=== PATIENT | female | born 1950 | race Caucasian/White ===

== ENCOUNTER → 2023-08-31 | Outpatient (CLI) | payer MEDICARE, OTHER, SELFPAY | END | disposition home or self-care (01) | PROVIDERS: Referring Provider Physician Assistant; Visit Provider Physician Assistant | DX: N39.0 Urinary tract infection, site not specified (principal) | CPT/HCPCS: 87086 ==

== ENCOUNTER → 2023-12-19 | Outpatient (CLI) | payer MEDICARE, OTHER, SELFPAY ==
[2023-12-19 08:55] LABS: Red Blood Cells-Urine 0 SEEN /hpf (0-5)
[2023-12-19 10:08] LABS: Absolute Lymphocyte Count 1.87 X10^3/uL (0.83-4.51); Absolute Neutrophil Count 2.7 X10^3/uL (2.0-7.7); Basophil# 0.06 X10^3/uL; Basophil% 1.1 % (0-1); Eosinophil# 0.34 X10^3/uL; Eosinophils% 6.2 % (0-5); Hematocrit 38.3 % (37-47); Hemoglobin 12.6 g/dL (12.0-15.0); Lymphocyte # 1.87 X10^3/ul (0.83-4.51); Lymphocyte % 34.1 % (19-41); Mean Corp Hgb Conc 32.9 g/dL (32-36); Mean Corpuscular Hgb 29.2 pg (27.0-32.0); Mean Corpuscular Volume 88.9 fL (81-99); Mean Platelet Vol. 12.3 fl (6.2-12.0); Monocyte# 0.56 X10^3/uL; Monocyte% 10.2 % (0-10); NRBC Flagged by Analyzer 0 % (0-5); Neutrophil # 2.65 X10^3/uL (2.7-7.7); Neutrophil % 48.2 % (47-70); Platelet Count 177 K/mm3 (150-450); RBC Distribution Width CV 13.5 % (11.6-14.6); RBC Distribution Width SD 44.3 fl (35.1-43.9); Red Blood Count 4.31 M/mm3 (4.2-5.4); White Blood Count 5.5 K/mm3 (4.4-11.0)
[2023-12-19 10:18] LABS: Color, Urine Yellow (Yellow); Glucose, Dipstick Normal (Normal); Ketone-Dipstick Negative (Negative); Leukocyte Esterase-Dipstick 100 /ul (Negative); Nitrite-Dipstick Negative (Negative); Occult Blood-Urine Negative /ul (Negative); Protein-Dipstick Negative (Negative); Specific Gravity, Urine 1.015 (1.002-1.030); Urine Clarity Clear (Clear); Urine Urobilinogen Normal (Normal)
[2023-12-19 10:19] LABS: Urine Bilirubin Dipstick 1 mg/dL (Negative)
[2023-12-19 10:25] LABS: Hemoglobin A1c 5.6 % (3.8-5.6)
[2023-12-19 10:35] LABS: AST(SGOT) 49 U/L (15-37); Alanine Aminotransfer ALT/SGPT 50 U/L (13-56); Albumin, Serum 3.4 g/dL (3.2-5.0); Alkaline Phosphatase 76 U/L (45-117); Anion Gap 10 (5-15); BUN 28 mg/dL (7-18); BUN/Creat Ratio 35.4 RATIO (10-20); Calcium,Total 9.2 mg/dL (8.5-10.1); Chloride 108 mmol/L (98-107); Cholesterol 106 mg/dL (200); Creatinine, Serum 0.79 mg/dL (0.55-1.02); EST Glomerular Filtration Rate 76 mL/min (>60); Est Glom Filt Rate - Afr Amer 92 mL/min (>60); Globulin 3.4 g/dL (2.2-4.2); Glucose 99 mg/dL (74-106); High Density Lipoprotein 61 mg/dL; Protein, Total 6.8 g/dL (6.4-8.2); Sodium Level 142 mmol/L (136-145); T4 Free Direct 0.92 ng/dL (0.76-1.46); Triglycerides 98 mg/dL; Very Low Density Lipoprotein 20 mg/dL (5-40)
[2023-12-19 10:44] LABS: Microalbumin,Random Urine 6.8 mg/L (NO RANGE EST.); Microalbumin:Creatinine Ratio 5.4 mg/g CRE (<30 mg/g CRE)
[2023-12-19 11:12] LABS: Amorphous Sediment 1+; Bacteria 2+ /hpf (None Seen); Mucous, Urine 1+ /hpf (<or=2+); Squamous Epithelial Cells - UA 0-5 SEEN /hpf (5-10); White Blood Cells 0-5 SEEN /hpf (0-5)
[2023-12-20 17:12] LABS: Anti-Thyroglobulin AB < 1.0 IU/mL (0.0-0.9); Thyroglobulin, Serum Qt. 30.2 ng/mL (1.5-38.5); Thyroid Peroxidase AB < 9 IU/mL (0-34)
== END | disposition home or self-care (01) ==
PROVIDERS: PCP Family Medicine; Visit Provider Family Medicine
DX: E11.69 Type 2 diabetes mellitus with other specified complication (principal); E11.59 Type 2 diabetes mellitus with other circulatory complications; E04.1 Nontoxic single thyroid nodule
CPT/HCPCS: 36415; 80053; 80061; 81001; 82043; 82570; 83036; 83735; 84432; 84439; 84443; 85025; 86376; 86800

== ENCOUNTER → 2023-12-21 | Outpatient (CLI) | payer MEDICARE, OTHER, SELFPAY ==
[2023-12-21 13:12] LABS: Hepatitis B Surface Antibody Reactive; Hepatitis B Surface Antigen Non-Reactive (Nonreactive); Hepatitis C Antibody Non-Reactive (Nonreactive)
== END | disposition home or self-care (01) ==
PROVIDERS: PCP Family Medicine; Visit Provider Family Medicine
DX: R79.89 Other specified abnormal findings of blood chemistry (principal)
CPT/HCPCS: 36415; 86706; 86803; 87340

== ENCOUNTER → 2024-01-08 | Outpatient (CLI) | payer MEDICARE, OTHER, SELFPAY ==
--- NOTE | 2024-01-08 08:43 | RAD_ITS ---
STUDY: X-RAY - ESOPHAGUS (BARIUM SWALLOW) WITH FLUOROSCOPY REASON FOR EXAM: Female, 73 years old. Dysphagia for solids. TECHNIQUE: 49 fluoroscopic view(s) of the esophagus were obtained following swallowing of barium. FLUOROSCOPY TIME (if supplied): (38 seconds) minutes/seconds. 12.1 mGy. COMPARISON: None. FINDINGS: There is no demonstrated esophageal foreign body. There is no demonstrated stricture or mucosal abnormality. Normal gastroesophageal junction, without a demonstrated hiatal hernia. The patient ingested a 12 mm tablet of barium without any difficulty. There is atherosclerotic calcification of the aortic arch with tortuosity of the descending aorta. Normal visualized pulmonary parenchyma. There are diffuse degenerative changes of the visualized thoracic spine. RAD/Esophagus Dual Contrast IMPRESSION: Normal plain film x-ray examination (barium swallow) of the esophagus. Electronically Signed: Quang Espinoza MD at 10:12 EDT ,
--- NOTE | 2024-01-08 08:44 | US_ITS ---
STUDY: THYROID ULTRASOUND REASON FOR EXAM: Female, 73 years old. nodule TECHNIQUE: Ultrasound evaluation of the thyroid was performed with real-time and static strauss-scale imaging. COMPARISON: None. FINDINGS: RIGHT LOBE: The right lobe of the thyroid gland measures 4.6 x 1.6 x 1.9 cm. There is a homogeneous echotexture. Isoechoic hypervascular nodule measures 1.7 x 1.2 x 1.0 cm. Complex cyst superiorly measures 0.7 x 0.3 x 0.4 cm. LEFT LOBE: The left lobe of the thyroid gland measures 4.5 x 1.7 x 1.4 cm. There is a homogeneous echotexture. 2 cystic lesions measuring 0.4 x 0.4 x 0.3 cm. And 0.5 x 0.4 x 0.3 cm. ISTHMUS: The isthmus measures 3 mm . The regional lymph nodes are normal. US/Thyroid IMPRESSION: 1.7 cm nodule right lobe. This nodule is solid or almost completely solid, hyperechoic or isoechoic, [id number], smoothly marginated and contains no echogenic foci. This nodule is mildly suspicious. Recommend follow-up thyroid ultrasounds at 1, 3 and 5 years. 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 Electronically Signed: Rishabh Gibbons MD at 17:30 EDT ,
--- NOTE | 2024-01-08 08:44 | ECHOD_ITS ---
Reason For Study: Murmur Procedure This was a 2D Doppler, Color Flow transthoracic echocardiogram. Exam performed in department. Left Ventricle Normal LV size. Left ventricular systolic function is normal. The left ventricular ejection fraction is 65 %. No regional wall motion abnormalities noted. Right Ventricle Normal RV size. Normal systolic function. Atria Normal left atrium. Normal right atrium. Mitral Valve Normal mitral valve. Tricuspid Valve Normal tricuspid valve. Mild (1+) tricuspid valve insufficiency. Pulmonary artery systolic pressure is 30 mmHg. Aortic Valve Trisinus/trileaflet aortic valve. Mild (1+) aortic valve insufficiency. Pulmonic Valve Normal pulmonic valve. Great Vessels Normal aortic root. The pulmonary artery is normal size. Normal inferior vena cava. Pericardium/Pleural No pericardial effusion. MMode/2D Measurements & Calculations LVIDd: 4.9 cm IVSd: 0.85 cm Ao root diam: 3.8 cm LVIDs: 3.2 cm LVPWd: 0.75 cm RVDd: 3.4 cm FS: 35.5 % LAV(MOD-bp): 42.7 ml LVAd ap4: 22.4 cm2 SV(MOD-sp4): 37.0 ml LAV(MOD-bp) Indexed: 22.6 ml/m2 LVLd ap4: 7.0 cm LAV(MOD-sp2): 42.0 ml EDV(MOD-sp4): 57.3 ml LAV(MOD-sp4): 40.6 ml EDV(sp4-el): 60.6 ml LVAs ap4: 11.3 cm2 LVLs ap4: 5.6 cm ESV(MOD-sp4): 20.3 ml ESV(sp4-el): 19.4 ml EF(MOD-sp4): 64.6 % EF(sp4-el): 68.0 % SV(sp4-el): 41.2 ml Ao sinus diam: 3.[address] Junction: 2.9 cm TAPSE: 2.4 cm LA A4 area: 16.3 cm2 RA A4 area: 12.7 cm2 Time Measurements MV dec time: 0.22 sec Doppler Measurements & Calculations MV E max connor: 95.5 cm/sec Lat Peak E' Connor: 10.0 cm/sec Med Peak E' Connor: 7.7 cm/sec MV A max connor: 91.1 cm/sec E/E' lat: 9.6 E/E' med: 12.4 MV E/A: 1.0 MV V2 max: 98.8 cm/sec MV P1/2t max connor: 98.8 cm/sec Ao V2 max: 156.3 cm/sec MV max P.9 mmHg MV P1/2t: 69.0 msec Ao max P.8 mmHg MV V2 mean: 53.2 cm/sec MV dec slope: 419.7 cm/sec2 Ao V2 mean: 99.5 cm/sec MV mean P.4 mmHg Ao mean P.7 mmHg MV V2 VTI: 35.9 cm MVA(P1/2t): 3.2 cm2 Ao V2 VTI: 37.5 cm AV (velocity ratio): 0.80 AI max connor: 406.9 cm/sec LV V1 max: 129.8 cm/sec PA V2 max: 95.8 cm/sec AI max P.3 mmHg LV V1 max P.7 mmHg AI dec slope: 200.3 cm/sec2 LV V1 mean P.4 mmHg AI P1/2t: 595.1 msec LV V1 mean: 85.1 cm/sec LV V1 VTI: 30.1 cm TR max connor: 263.3 cm/sec TR max P.7 mmHg ECHO/Echo Complete Interpretation Summary Normal LV size. Left ventricular systolic function is normal. The left ventricular ejection fraction is 65 %. Mild (1+) aortic valve insufficiency. Mild (1+) tricuspid valve insufficiency. Ordering Physician: Yuval Castillo Referring Physician: Yuval Castillo Performed By: Elton Santana RCS
== END | disposition home or self-care (01) ==
PROVIDERS: PCP Family Medicine; Referring Provider Family Medicine; Visit Provider Family Medicine
DX: R01.1 Cardiac murmur, unspecified (principal); R13.10 Dysphagia, unspecified; E04.1 Nontoxic single thyroid nodule
CPT/HCPCS: 74221; 76536; 93306

== ENCOUNTER → 2024-05-13 | Outpatient (CLI) | payer MEDICARE, OTHER, SELFPAY ==
[2024-05-13 10:41] LABS: Bacteria 0 SEEN /hpf (None Seen); Mucous, Urine 0 SEEN /hpf (<or=2+)
[2024-05-13 12:37] LABS: Absolute Lymphocyte Count 1.71 X10^3/uL (0.83-4.51); Absolute Neutrophil Count 3.2 X10^3/uL (2.0-7.7); Basophil# 0.06 X10^3/uL; Color, Urine Yellow (Yellow); Eosinophil# 0.23 X10^3/uL; Eosinophils% 3.9 % (0-5); Glucose, Dipstick Normal (Normal); Hematocrit 40.1 % (37-47); Hemoglobin 13.4 g/dL (12.0-15.0); Ketone-Dipstick Negative (Negative); Leukocyte Esterase-Dipstick 25 /ul (Negative); Lymphocyte # 1.71 X10^3/ul (0.83-4.51); Mean Corp Hgb Conc 33.4 g/dL (32-36); Mean Corpuscular Hgb 29.7 pg (27.0-32.0); Mean Corpuscular Volume 88.9 fL (81-99); Mean Platelet Vol. 11.9 fl (6.2-12.0); Monocyte# 0.65 X10^3/uL; NRBC Flagged by Analyzer 0 % (0-5); Neutrophil # 3.23 X10^3/uL (2.7-7.7); Neutrophil % 54.9 % (47-70); Nitrite-Dipstick Negative (Negative); Occult Blood-Urine 10 /ul (Negative); Platelet Count 217 K/mm3 (150-450); Protein-Dipstick Negative (Negative); RBC Distribution Width CV 13.7 % (11.6-14.6); RBC Distribution Width SD 44.6 fl (35.1-43.9); Red Blood Count 4.51 M/mm3 (4.2-5.4); Urine Clarity Clear (Clear); Urine Urobilinogen Normal (Normal); White Blood Count 5.9 K/mm3 (4.4-11.0)
[2024-05-13 12:49] LABS: Urine Bilirubin Dipstick 3 mg/dL (Negative)
[2024-05-13 12:53] LABS: Red Blood Cells-Urine 0-5 SEEN /hpf (0-5); Squamous Epithelial Cells - UA 0-5 SEEN /hpf (5-10); White Blood Cells 0-5 SEEN /hpf (0-5)
[2024-05-13 13:12] LABS: AST(SGOT) 21 U/L (15-37); Alanine Aminotransfer ALT/SGPT 30 U/L (13-56); Albumin, Serum 3.7 g/dL (3.2-5.0); Alkaline Phosphatase 61 U/L (45-117); Anion Gap 5 (5-15); BUN 21 mg/dL (7-18); BUN/Creat Ratio 28.2 RATIO (10-20); Calcium,Total 9.4 mg/dL (8.5-10.1); Chloride 108 mmol/L (98-107); Cholesterol 116 mg/dL (200); Creatinine, Serum 0.75 mg/dL (0.55-1.02); EST Glomerular Filtration Rate 81 mL/min (>60); Est Glom Filt Rate - Afr Amer 99 mL/min (>60); Globulin 3.7 g/dL (2.2-4.2); Glucose 94 mg/dL (74-106); High Density Lipoprotein 65 mg/dL; Potassium 4.8 mmol/L (3.5-5.1); Protein, Total 7.4 g/dL (6.4-8.2); Sodium Level 140 mmol/L (136-145); Triglycerides 127 mg/dL; Very Low Density Lipoprotein 25 mg/dL (5-40)
[2024-05-13 15:03] LABS: Hemoglobin A1c 5.6 % (3.8-5.6)
== END | disposition home or self-care (01) ==
PROVIDERS: PCP Family Medicine; Referring Provider Family Medicine; Visit Provider Family Medicine
DX: Z00.00 Encounter for general adult medical examination without abnormal findings (principal); E04.1 Nontoxic single thyroid nodule
CPT/HCPCS: 36415; 80053; 80061; 81001; 83036; 85025

== ENCOUNTER → 2024-06-26 | Outpatient (CLI) | payer MEDICARE, OTHER, SELFPAY ==
--- NOTE | 2024-06-26 12:59 | BI_ITS ---
EXAM: SCRN MAMM (CAD)W/CRISTINE BILAT 06/26/2024 CLINICAL HISTORY: F, Age 73 y/o , SCREENING TECHNIQUE: Bilateral screening digital breast tomosynthesis with 2D and 3D images. Computer aided detection. COMPARISON: None available FINDINGS: TISSUE DENSITY: The breast tissue is composed of scattered area of fibroglandular density. Bilateral Breast Mammographic Findings: There is a group of calcifications in the upper-outer left breast at middle depth. No significant masses, calcifications or other abnormalities are identified in the right breast. BI/SCRN MAMM (CAD)W/CRISTINE BILAT IMPRESSION: The group of calcifications in the upper-outer left breast at middle depth requ ires further evaluation. Recommend diagnostic mammogram of the left breast with spot magnification views. Right Breast: BIRADS 1 NEGATIVE. Left Breast: BIRADS 0 Incomplete: Need additional imaging evaluation and/or pr ior mammograms for comparison.. OVERALL FINAL ASSESSMENT: BIRADS 0 Incomplete: Need additional imaging evaluati on and/or prior mammograms for comparison.. RECOMMENDATION: Recommendation: Magnification views. A letter with findings and recommendations will be mailed to the patient. Reading Location: [facility]
--- NOTE | 2024-06-26 12:59 | BD_ITS ---
EXAM: DEXA BONE DENSITY STUDY 06/26/2024 REASON FOR EXAM: F,73 y/o patient is postmenopausal. History of adult fracture. Patient is currently being treated for osteoporosis. TECHNIQUE: DXA scan of the lumbar spine and total body less head, using make and model. REFERENCE LINKS: ISCD Pediatric Positions ISCD Adult Positions COMPARISON: None. FINDINGS: BMD and Z-SCORES DEXA examination of lumbar spine shows a bone mineral density measures 0.654 grams/centimeter squared. T-score measures -3.9 and Z-score measures -1.6. DEXA examination of the left femoral neck shows a bone mineral density measured 0.543 grams/centimeter squared. T-score measures -2.8 and Z-score measures -0.9. Total bone mineral density of the left hip measures 0.699 grams/centimeter squared. T-score measures -2.0 and Z-score measures -0.4. DEXA examination left femoral neck shows a bone mineral density measured 0.566 grams/centimeter squared. T-score measures -2.5 and Z-score measures -0.7. Total bone mineral density of the right hip measures 0.678 grams/centimeter squared. T-score measures -2.2 and Z-score measures -0.6. Fracture Risk Calculation: FRAX (10-year Fracture Risk) Score: The 10 year fracture risk index for major osteoporotic fracture is 23% and for hip fracture is 6%. The patient does meet the pharmacological treatment recommendations for prevention of osteoporosis BD/Dexa Bone Density Study IMPRESSION: Patient demonstrates osteoporosis of the lumbar spine and both hips. Recommend follow-up, if clinically warranted. Reading Location: [id number]
== END | disposition home or self-care (01) ==
PROVIDERS: PCP Family Medicine
DX: Z12.31 Encounter for screening mammogram for malignant neoplasm of breast (principal); Z78.0 Asymptomatic menopausal state
CPT/HCPCS: 77063; 77067; 77080

== ENCOUNTER → 2024-07-02 | Outpatient (CLI) | payer MEDICARE, OTHER, SELFPAY ==
--- NOTE | 2024-07-02 13:55 | CT_ITS ---
PROCEDURE: LOW DOSE CT LUNG SCREENING 07/02/2024 REASON FOR EXAM: SCREEN Former smoker. Patient has smoked 1 pack per day for many years. TECHNIQUE: Low Dose CT Lung screening without contrast. Coronal and Sagittal reconstruction series were provided. One or more dose reduction techniques were used (e.g., Automated exposure control, adjustment of the mA and/or kV according to patient size, use of iterative reconstruction technique). REFERENCE LINK: [employer] Lung-RADS RADIATION DOSE SUMMARY: CTDlvol: 2.39 mGy DLP: 71.17 mGycm COMPARISON: None. FINDINGS: PULMONARY NODULES: (Only nodules >3mm are reported) Nodules described below are on series 1 unless otherwise specified. Pulmonary Nodules: No suspicious nodules are seen Hardware:None4 Lymph Nodes:No mediastinal lymph nodes are seen. Heart and Vasculature:The heart is nonenlarged. Coronary Artery Calcifications: Present Lungs and Airways: Mild emphysematous changes are present. Pleura:Unremarkable Upper Abdomen:Unremarkable Bones:Degenerative changes of the thoracic spine. CT/Low Dose CT Lung Screening IMPRESSION: No suspicious nodules are seen. Coronary artery calcification (CAC) is is present Lung-RADS Category: 2 BENIGN (BASED ON IMAGING FEATURES OR INDOLENT BEHAVIOR). RECOMMEND 12-MONTH SCREENING LDCT. Other Significant Findings: None. Reading Location: [place] [id number]
== END | disposition home or self-care (01) ==
PROVIDERS: PCP Family Medicine
DX: Z00.00 Encounter for general adult medical examination without abnormal findings (principal); Z12.39 Encounter for other screening for malignant neoplasm of breast; Z12.2 Encounter for screening for malignant neoplasm of respiratory organs; M81.0 Age-related osteoporosis without current pathological fracture; F17.210 Nicotine dependence, cigarettes, uncomplicated
CPT/HCPCS: 71271

== ENCOUNTER → 2024-08-08 | Outpatient (CLI) | payer MEDICARE, OTHER, SELFPAY ==
--- NOTE | 2024-08-08 12:34 | BI_ITS ---
EXAM: DIAG MAMM W/CAD, UNILAT N/A CLINICAL HISTORY: 73-year-old female presents for follow-up a left breast findings seen on examination of 06/26/2024. TECHNIQUE: Left diagnostic digital breast tomosynthesis with 2D and 3D images. Computer aided detection. COMPARISON: Prior exam(s) dated 06/26/2024, 11/13/2022. FINDINGS: TISSUE DENSITY: The breast tissue is composed of scattered area of fibroglandular density. Left breast: There is a group of coarse heterogeneous calcifications in a linear distribution in the upper-outer left breast at middle depth, measuring 2.3 x 1.7 x 1.8 cm. BI/DIAG MAMM W/CAD, UNILAT IMPRESSION: Suspicious left breast calcifications require further evaluation. Recommend ti ssue sampling with stereotactic/tomosynthesis guided core needle biopsy. OVERALL FINAL ASSESSMENT: BIRADS 4B SUSPICIOUS ABNORMALITY-Moderate suspicion f or malignancy (10-50% likelihood of cancer). RECOMMENDATION: Biopsy should is recommended. A letter with findings and recommendations will be mailed to the patient. Reading Location: [facility]
== END | disposition home or self-care (01) ==
LOC: OPBI 12:31
PROVIDERS: PCP Family Medicine
DX: R92.1 Mammographic calcification found on diagnostic imaging of breast (principal)
CPT/HCPCS: 77065

== ENCOUNTER → 2024-09-19 | Outpatient (CLI) | payer MEDICARE, OTHER, SELFPAY ==
--- NOTE | 2024-09-19 11:43 | BRBX_PTH ---
PATIENT: MADHAVI HORN LOC: [facility] U#:[id number] AGE/SX: 73/F ROOM: RE09/19/[address]: Dr. Gertrudis Adams MD : 1950 BED: DIS: 09/19/2024 SPEC #: [id number] RECD: 09/19/24 12:00 STATUS: KEVYN FELIX #: [id number] DESTINEY: 09/19/24 11:[address]: Gertrudis Adams DEPT: SURGICAL PATHOLOGY RECD BY: Emeterio Tripathi ENTERED: 09/19/24 12:02 SP TYPE: BREAST BX OTHR DR: Dr. Yuval Castillo MD Tissues: A - Left breast, NOS Procedures: Surgery Specimen Level IV HEADER OPERATION: Left breast stereo needle core biopsy PRE-OP DIAGNOSIS: Left upper outer quadrant calcs TISSUE SUBMITTED: A- Left upper outer quadrant, microcalcifications *calcification chamber = 2= 5 > 6 Ischemic Time: 12 minute Fixation Time: 55 hours, 35 minutes MICROSCOPIC DIAGNOSIS A. Breast, left, microcalcifications, stereotactic biopsy: * Benign breast tissue with focal fibroadenomatoid change and focal fat necrosis. * Microcalcifications noted. MICROSCOPIC DESCRIPTION Slides are reviewed. GROSS DESCRIPTION Received fresh and subsequently placed in formalin labeled with the patient's name and date of are 5 castro-yellow lobulated soft tissue cores, 1.5-2.0 cm in length by 0.4-0.6 cm in diameter. The specimen is entirely submitted in 2 cassettes, following postoperative imaging as follows: A1: Chamber #1/#3/#6A2: Chamber #1/#2 Cold ischemic time: 12 minutesFormalin fixation time: 55 hours, 35 minutes ID 09/19/2024 CPT:00590
--- NOTE | 2024-09-19 11:57 | OP.PCM_ITS ---
Operative Report (Standard) Operative Information Date of Procedure: 09/19/24 Pre-Operative Diagnosis: Left breast microcalcifications Post-Operative Diagnosis: Same Surgery/Procedure Performed: Left breast stereotactic biopsy media planner: No Type of Anesthesia: Local Procedure Start Time: 11:40 Procedure Stop Time: 11:55 Select all DRAINS/GRAFTS/IMPLANTS that apply: Implanted device Implanted device details: Mammotome Petite clip Estimated Blood Loss: <10 cc Specimen collected: Yes Description of specimen(s) removed: Left breast upper outer quadrant microcalcifications Description of surgery: Procedure: Left stereotactic core biopsy Indications: 73 year-old female with microcalcifications in the upper outer quadrant of the left breast. Risk benefits were discussed the patient and she elected to proceed with stereotactic core biopsy with clip placement Description of procedure: Patient was brought into the mammography suite and laid prone on the stereotactic table. A timeout was completed verifying correct patient, procedure, site, specially, prior to beginning procedure. The left breast was prepped and draped in usual sterile fashion and using local anesthesia was obtained with 1% lidocaine with epi. Patient's left breast was positioned and placed into compression. Initial film showed calcifications are in the center of the compression paddle. 15? views were then taken. The calcifications were localized. The left breast was prepped draped in usual sterile fashion. An 8-gauge mammotome was set up according to the digital coordinates. The tract of the mammotome was anesthetized with local anesthesia and an incision was made with the 11 blade scalpel at the entry site. The mammotome was advanced to the prefire state. Pre-prior films were checked and verified. The mammotome was fired. Post fire films were also checked and verified. Biopsies were taken from 1:00 to 6:00. The specimen was x-rayed and all the calcifications were within the specimen. Mammotome clip was placed at the 12 o'clock position. The mammotome was removed from the breast. An additional films were taken which showed all calcifications were removed and a clip was in place. Pressure was held for hemostasis. Once hemostasis was assured the wound was dressed with Steri-Strips and OpSite. The patient tolerated the procedure well and was discharged from the mammography suite good condition. complications: none Surgical Findings: See operative report Complications Complications: No
== END | disposition home or self-care (01) ==
LOC: BIRAD 10:57
PROVIDERS: PCP Family Medicine; Referring Provider Surgery; Visit Provider Surgery
DX: N64.1 Fat necrosis of breast (principal); R92.0 Mammographic microcalcification found on diagnostic imaging of breast; N60.22 Fibroadenosis of left breast
CPT/HCPCS: 19082; 19081; 88305

== ENCOUNTER → 2024-11-18 | Outpatient (CLI) | payer MEDICARE, OTHER, SELFPAY ==
[2024-11-18 10:11] LABS: Hematocrit 38.4 % (37-47); Hemoglobin 12.8 g/dL (12.0-15.0); Immature Granulocytes Count 0.010 X10^3/uL (0.0-0.0); Mean Corp Hgb Conc 33.3 g/dL (32-36); Mean Corpuscular Volume 89.7 fL (81-99); Mean Platelet Vol. 11.9 fl (6.2-12.0); NRBC Flagged by Analyzer 0 % (0-5); Platelet Count 209 K/mm3 (150-450); RBC Distribution Width CV 13.8 % (11.6-14.6); RBC Distribution Width SD 45.4 fl (35.1-43.9); Red Blood Count 4.28 M/mm3 (4.2-5.4); White Blood Count 6.0 K/mm3 (4.4-11.0)
[2024-11-18 10:50] LABS: Creatinine, Urine (random) 49.40 mg/dL (28.00-217.00); Microalbumin,Random Urine < 12.0 mg/L (<20 mg/L)
[2024-11-18 11:05] LABS: AST(SGOT) 23 U/L (<=31); Alanine Aminotransfer ALT/SGPT 22 U/L (<=34); Albumin, Serum 4.1 g/dL (3.4-4.8); Alkaline Phosphatase 64 U/L (35-104); Anion Gap 11 (5-15); BUN 19 mg/dL (4-19); BUN/Creat Ratio 24.8 RATIO (10-20); Calcium,Total 9.5 mg/dL (7.6-11.0); Carbon Dioxide 24.4 mmol/L (21.0-32.0); Chloride 105 mmol/L (98-108); Cholesterol 116 mg/dL (<=200); Globulin 2.9 g/dL (2.2-4.2); Glucose 88 mg/dL (70-99); Low Density Lipoprotein Calc. 35 mg/dL; Potassium 4.9 mmol/L (3.3-5.1); Triglycerides 100 mg/dL; Very Low Density Lipoprotein 20 mg/dL (5-40); Vitamin D,25 Hydroxy 47.9 ng/mL (30-100); cholesterol:hdl ratio screen 1.91
== END | disposition home or self-care (01) ==
LOC: MFPLAB 09:05
PROVIDERS: PCP Family Medicine; Referring Provider Family Medicine; Visit Provider Family Medicine
DX: E11.8 Type 2 diabetes mellitus with unspecified complications (principal); M81.0 Age-related osteoporosis without current pathological fracture
CPT/HCPCS: 36415; 80053; 80061; 82043; 82306; 82570; 83036; 85025